=== PATIENT | female | born 1960 | race African-American/Black ===

== ENCOUNTER 2018-11-21 10:28 | Outpatient (CLI) | payer MEDICARE ==
--- NOTE | 2018-11-21 11:00 | MMO ---
Bilateral MAMMO Bilat Screen [facility]. CLINICAL HISTORY: Patient is 58 years old and is seen for screening. The patient has no family history of breast cancer. The patient has no personal history of cancer. VIEWS: The views performed were: bilateral craniocaudal with tomosynthesis and bilateral mediolateral oblique with tomosynthesis. FILMS COMPARED: The present examination has been compared to prior imaging studies performed at [facility] on 10/31/2009, 11/01/2010, 04/08/2013 and 11/14/2016. MAMMOGRAM FINDINGS: There are scattered fibroglandular densities. There are no suspicious masses, suspicious calcifications, or new areas of architectural distortion. IMPRESSION: THERE IS NO MAMMOGRAPHIC EVIDENCE OF MALIGNANCY. A ROUTINE FOLLOW-UP MAMMOGRAM IN 1 YEAR IS RECOMMENDED. THE RESULTS OF THIS EXAM WERE SENT TO THE PATIENT. ACR BI-RADS Category 1 - Negative MAMMOGRAPHY NOTE: 1. A negative mammogram report should not delay a biopsy if a dominant of clinically suspicious mass is present. 2. Approximately 10% to 15% of breast cancers are not detected by mammography. 3. Adenosis and dense breasts may obscure an underlying neoplasm.
== END 2018-11-21 10:29 | disposition home or self-care (01) ==
LOC: BICMAMMO 10:28
PROVIDERS: ATTEND Student in an Organized Health Care Education/Training Program
DX: Z12.31 Encounter for screening mammogram for malignant neoplasm of breast (principal)
CPT/HCPCS: 77063; 77067

== ENCOUNTER 2019-01-23 11:41 | Outpatient (CLI) | payer MEDICARE ==
--- NOTE | 2019-01-23 14:06 | CT ---
CT PULMONARY LUNG SCAN: Date: 01/23/19 Axial tomograms obtained of chest following lose dose protocol for chest screening. INDICATION: Nicotine dependence. FINDINGS: Mild chronic lung change. Mild bronchiectasis in the lung bases. An ill-defined 5 mm nodular density in the left upper lobe anteriorly, image 89 of axial. Tiny 2 mm nodule within the fissure laterally l eft lung, image 133. Mediastinum unremarkable. Images of upper abdomen unremarkable. Osseous structures unremarkable. IMPRESSION: Chronic lung changes as described. Small 5 mm nodule in the left upper lobe. Lung-RADS 2. Recommend 1 year follow-up low dose screening CT. POS: KITTY
== END 2019-01-23 11:42 | disposition home or self-care (01) ==
LOC: CT 11:41
PROVIDERS: ATTEND Family Medicine
DX: F17.200 Nicotine dependence, unspecified, uncomplicated (principal); R91.1 Solitary pulmonary nodule
CPT/HCPCS: G0297

== ENCOUNTER 2019-11-24 07:32 | Outpatient (CLI) | payer MEDICARE ==
--- NOTE | 2019-11-24 08:17 | MMO ---
Bilateral MAMMO Bilat Screen [facility]. CLINICAL HISTORY: Patient is 59 years old and is seen for screening. The patient has no family history of breast cancer. The patient has no personal history of cancer. VIEWS: The views performed were: bilateral craniocaudal with tomosynthesis and bilateral mediolateral oblique with tomosynthesis. FILMS COMPARED: The present examination has been compared to prior imaging studies performed at [facility] on 11/01/2010, 04/08/2013, 11/14/2016 and 11/21/2018. This study has been interpreted with the assistance of computer-aided detection. MAMMOGRAM FINDINGS: There are scattered fibroglandular densities. There are stable benign appearing calcifications seen in the left breast. There are no suspicious masses, suspicious calcifications, or new areas of architectural distortion. IMPRESSION: THERE IS NO MAMMOGRAPHIC EVIDENCE OF MALIGNANCY. A ROUTINE FOLLOW-UP MAMMOGRAM IN 1 YEAR IS RECOMMENDED. THE RESULTS OF THIS EXAM WERE SENT TO THE PATIENT. ACR BI-RADS Category 2 - Benign finding MAMMOGRAPHY NOTE: 1. A negative mammogram report should not delay a biopsy if a dominant of clinically suspicious mass is present. 2. Approximately 10% to 15% of breast cancers are not detected by mammography. 3. Adenosis and dense breasts may obscure an underlying neoplasm. Reported by: YINKA MAGANA MD Electonically Signed: [id number]
== END 2019-11-24 07:33 | disposition home or self-care (01) ==
LOC: BICMAMMO 07:32
PROVIDERS: ATTEND Student in an Organized Health Care Education/Training Program
DX: Z12.31 Encounter for screening mammogram for malignant neoplasm of breast (principal)
CPT/HCPCS: 77063; 77067

== ENCOUNTER 2020-03-18 11:46 | Outpatient (CLI) | payer MEDICARE ==
--- NOTE | 2020-03-18 12:18 | CT ---
EXAM: CT chest without contrast per low-dose cancer screening protocol HISTORY: History of smoking and nicotine dependence; greater than 40 pack year smoking history COMPARISON: 01/23/2019 TECHNIQUE: Multiple contiguous axial images were obtained in a CT of the chest without contrast per l ow-dose cancer screening protocol. Sagittal and coronal reformats were performed. FINDINGS: Pulmonary nodules: There is a stable well-circumscribed 5 mm nodule in the lingula on image 61 of 149 . No other pulmonary nodules are seen. No focal infiltrates are seen. Pleural space: No pneumothorax or pleural effusion are seen. Heart: The heart is normal in size. Mediastinum: No hilar or mediastinal lymphadenopathy appreciated on this limited noncontrast examinat ion. Bones: Degenerative changes in the spine. Visualized subdiaphragmatic structures: The left kidney is not visualized and may be absent.. IMPRESSION: Lung RADS category 2-benign findings.
== END 2020-03-18 11:47 | disposition home or self-care (01) ==
LOC: BICCT 11:46
PROVIDERS: ATTEND Student in an Organized Health Care Education/Training Program
DX: Z12.2 Encounter for screening for malignant neoplasm of respiratory organs (principal); F17.200 Nicotine dependence, unspecified, uncomplicated
CPT/HCPCS: G0297

== ENCOUNTER 2020-11-25 07:39 | Outpatient (CLI) | payer MEDICARE | END 2020-11-25 07:40 | disposition home or self-care (01) | LOC: BICMAMMO 07:39 | PROVIDERS: ATTEND Student in an Organized Health Care Education/Training Program | DX: Z12.31 Encounter for screening mammogram for malignant neoplasm of breast (principal) | CPT/HCPCS: 77063; 77067 ==

== ENCOUNTER 2021-08-31 09:47 | Outpatient (CLI) | payer OTHER | END 2021-08-31 09:48 | disposition home or self-care (01) | LOC: DTY/OP 09:47 | PROVIDERS: ATTEND Student in an Organized Health Care Education/Training Program | DX: E11.9 Type 2 diabetes mellitus without complications (principal) | CPT/HCPCS: 97802 ==

== ENCOUNTER 2021-12-06 10:49 | Outpatient (CLI) | payer MEDICARE | END 2021-12-06 10:50 | disposition home or self-care (01) | LOC: BICMAMMO 10:49 | PROVIDERS: ATTEND Student in an Organized Health Care Education/Training Program | DX: Z12.31 Encounter for screening mammogram for malignant neoplasm of breast (principal) | CPT/HCPCS: 77063; 77067 ==

== ENCOUNTER 2022-02-12 12:25 | Outpatient (CLI) | payer OTHER | END 2022-02-12 12:26 | disposition home or self-care (01) | LOC: BICCT 12:25 | PROVIDERS: ATTEND Student in an Organized Health Care Education/Training Program | DX: Z12.2 Encounter for screening for malignant neoplasm of respiratory organs (principal); F17.210 Nicotine dependence, cigarettes, uncomplicated | CPT/HCPCS: 71271 ==

== ENCOUNTER 2022-03-19 01:14 | Observation (INO) | payer OTHER ==
[2022-03-19] MEDS ORDERED: Tranexamic Acid 1,000 MG/10 ML VIAL ONE (01:54)
[2022-03-19] MEDS ORDERED: Ondansetron PF 4 MG/2 ML Vial IVP PRN (04:15)
[2022-03-19] MEDS ORDERED: Ondansetron ODT 4 MG TAB SL PRN (04:15)
[2022-03-19] MEDS ORDERED: Acetaminophen 325 MG TAB PO PRN (04:20)
[2022-03-19 05:34] LABS: Anion Gap 13 mmol/L (10-20); BUN (Urea Nitrogen) 20 mg/dL (9.8-20.1); Calc. Creatinine Clearance 0 mL/min (70-130); Calcium 9.6 mg/dL (7.8-10.44); Carbon Dioxide 24 mmol/L (23-31); Chloride 106 mmol/L (98-107); Estimated GFR 54; Glucose 103 mg/dL (80-115); Potassium 4.4 mmol/L (3.5-5.1); Sodium 139 mmol/L (136-145)
[2022-03-19 05:45] LABS: Eosinophils 1 % (0-10); Hemoglobin 13.7 g/dL (12.0-16.0); Lymphocytes 45 % (21-51); MDiff Complete? YES; Mean Corpuscular HGB CONC 32.6 g/dL (32.0-36.0); Mean Corpuscular Hemoglobin 27.6 pg (27.0-31.0); Mean Corpuscular Volume 84.6 fL (78.0-98.0); Mean Platelet Volume 8.1 fL (7.4-10.4); Monocytes 2 % (0-10); Neutrophil 51 % (42-75); Platelet Count 263 thou/uL (130-400); Platelet Morphology Comment Appears Adequate; RBC Distribution Width 15.2 % (11.5-14.5); RBC Morphology Normal; Red Blood Cell (RBC) Count 4.95 mill/uL (4.20-5.40); Reflex for Review?? YES; White Blood Cell (WBC) Count 8.1 thou/uL (4.8-10.8)
[2022-03-19 06:00] LABS: SARS-CoV-2 NAA Rapid Test Not Detected (NotDetected)
[2022-03-19] MEDS ORDERED: Aspirin 81 mg Enteric Coated Tablet PO SCH (09:00)
[2022-03-19] MEDS ORDERED: Famotidine 20 MG TAB PO SCH (09:00)
[2022-03-19] MEDS ORDERED: Carvedilol 3.125 MG TAB PO SCH (09:00)
[2022-03-19] MEDS ORDERED: Gabapentin 300 MG CAP PO SCH (09:00)
[2022-03-19 09:07] VITALS: BMI 32.6
[2022-03-19] MEDS ORDERED: Losartan 25 MG TAB PO SCH (10:30)
[2022-03-19] MEDS ORDERED: Insulin Regular 300 UNITS/3 ML VIAL SC SCH (12:00)
[2022-03-19 12:16] VITALS: BP 114/78; TEMP 98.7
[2022-03-19] MEDS ORDERED: Rosuvastatin 20 MG TAB PO SCH (21:00)
[2022-03-20] MEDS ORDERED: Losartan 25 MG TAB PO SCH ×2 (09:00→10:30)
== END 2022-03-19 13:45 | disposition home or self-care (01) ==
LOC: ERS 01:14 → T4-B 03:52 → INTOOBSV 03:52
PROVIDERS: ADMIT Family Medicine; ATTEND Family Medicine
DX: T78.3XXA Angioneurotic edema, initial encounter (principal); T46.4X5A Adverse effect of angiotensin-converting-enzyme inhibitors, initial encounter; E11.40 Type 2 diabetes mellitus with diabetic neuropathy, unspecified; I10 Essential (primary) hypertension; E78.5 Hyperlipidemia, unspecified; K21.9 Gastro-esophageal reflux disease without esophagitis; F17.210 Nicotine dependence, cigarettes, uncomplicated; Z79.4 Long term (current) use of insulin; Z79.82 Long term (current) use of aspirin; Z79.84 Long term (current) use of oral hypoglycemic drugs; Z79.899 Other long term (current) drug therapy; Z88.0 Allergy status to penicillin; Z20.822 Contact with and (suspected) exposure to COVID-19
CPT/HCPCS: 80048; 82962; 85025; 96374; 99285; U0002; 36416; 85060

== ENCOUNTER 2023-04-29 07:57 | Outpatient (CLI) | payer OTHER | END 2023-04-29 07:58 | disposition home or self-care (01) | LOC: BICMAMMO 07:57 | PROVIDERS: ATTEND Student in an Organized Health Care Education/Training Program | DX: Z12.31 Encounter for screening mammogram for malignant neoplasm of breast (principal) | CPT/HCPCS: 77063; 77067 ==

== ENCOUNTER 2023-05-03 08:00 | Outpatient (CLI) | payer OTHER | END 2023-05-03 08:01 | disposition home or self-care (01) | LOC: BICULT 08:00 | PROVIDERS: ATTEND Internal Medicine Nephrology | DX: I12.9 Hypertensive chronic kidney disease with stage 1 through stage 4 chronic kidney disease, or unspecified chronic kidney disease (principal); N18.9 Chronic kidney disease, unspecified | CPT/HCPCS: 76770; 93975 ==